=== PATIENT | female | born 1950 | race Caucasian/White ===

== ENCOUNTER 2017-02-10 17:41 | Emergency (ER) | payer OTHER ==
[~2017-02-10 17:41] MED LIST: ABILIFY2 M1 PO; ADULT LOW DOSE81 M1 PO; BUPROPION HCL150 M4 PO; CIMZIA400 MG SQ; CLONAZEPAM0.5 M2 PO; FERROUS GLUCON324 M2 PO; FISH OIL300 M1 PO; MAGNESIUM400 M1 PO; NORCO 5/3251 TAB PO; OXYBUTYNIN CHLO15 M1 PO; PAXIL20 M1 PO; REMERON15 M1 PO; VALTREX500 M1 PO; VITAMIN B122500 MCG SC; VITAMIN C500 M3 PO; VITAMIN D5000 UNI1 PO; WELCHOL625 M1 PO; [UNRECOGNIZED DRUG - OTHER] PO
[2017-04-22] MEDS ORDERED: WELCHOL625 M1 PO (11:13)
[2017-04-22] MEDS ORDERED: CIMZIA400 MG/21 IM (11:15)
[2017-04-22] MEDS ORDERED: CALCIUM CITRAT1 EA18 PO (11:16)
[2017-04-22] MEDS ORDERED: CYANOCOBAL1000 MCG/3 SC (11:16)
[2017-04-22] MEDS ORDERED: VITAMIN C500 M6 PO (11:17)
[2017-04-22] MEDS ORDERED: GLUCOSAMINE HC500 M1 PO (11:18)
[2017-04-22] MEDS ORDERED: VITAMIN D5000 UNI2 PO (11:18)
== END 2017-02-10 20:20 ==
LOC: EDMED 17:41
DX: Z04.1 Encounter for examination and observation following transport accident (principal); E78.5 Hyperlipidemia, unspecified; F32.9 Major depressive disorder, single episode, unspecified; D64.9 Anemia, unspecified; F17.210 Nicotine dependence, cigarettes, uncomplicated; Z79.899 Other long term (current) drug therapy